=== PATIENT | male | born 1960 | race Caucasian/White ===

== ENCOUNTER → 2018-08-28 09:27 | Outpatient (CLI) | payer BC, SELFPAY ==
--- NOTE | 2018-08-28 09:36 | XR_ITS ---
XR elbow LT min 3V HISTORY: Chronic elbow pain ITS.REASON: AP + Lateral, radial head view ORDERING PHYSICIAN: Teresita Manning MD PATIENT AGE: 57 years COMPARISON: None FINDINGS: BONY STRUCTURES: No fracture or dislocation. No lytic or blastic change. Normal mineralization. SOFT TISSUES: Unremarkable. No radio opaque foreign bodies. No displaced fat pad. JOINT SPACE: Well-preserved. No significant arthritic changes evident. IMPRESSION: Negative elbow.
== END ==
PROVIDERS: PCP Internal Medicine; Visit Provider Orthopaedic Surgery
DX: M25.522 Pain in left elbow (principal)
CPT/HCPCS: 73080

== ENCOUNTER → 2018-12-06 14:28 | Outpatient (CLI) | payer BC, SELFPAY ==
--- NOTE | 2018-12-06 14:34 | NVE_ITS ---
Venous Exam Indications: 729.5 Pain in limb. IMPRESSIONS 1. There is no evidence of significant Reflux. 2. No evidence of deep or superficial vein thrombosis involving the right lower extremity Right lower extremity venous duplex evaluation. Doppler flow study including spectral analysis, color and young scale imaging. Location: Vascular laboratory. Patient status: Outpatient. Tables: Venous flow and imaging: + +-------+ + Location Overall Flow properties + +-------+ + Right common femoral Patent Normal phasicity; spontaneous; normal augmentation; compressible + +-------+ + Right saphenofemoral junction Patent Compressible + +-------+ + Right profunda femoral Patent Compressible + +-------+ + Right femoral Patent Normal phasicity; spontaneous; normal augmentation; compressible + +-------+ + Right greater saphenous Patent Normal phasicity; spontaneous; normal augmentation; compressible + +-------+ + Right popliteal Patent Normal phasicity; spontaneous; normal augmentation; compressible + +-------+ + Right posterior tibial Patent Compressible + +-------+ + Right peroneal Patent Compressible + +-------+ + Right gastrocnemius Patent Compressible + +-------+ + Right soleal Patent Compressible + +-------+ + (Report amended ) Electronically signed by: Primo Ndiaye [id number]
== END ==
PROVIDERS: PCP Internal Medicine; Visit Provider Internal Medicine
DX: M79.661 Pain in right lower leg (principal); I83.91 Asymptomatic varicose veins of right lower extremity
CPT/HCPCS: 93971

== ENCOUNTER → 2019-04-09 11:10 | Outpatient (CLI) | payer BC, SELFPAY ==
--- NOTE | 2019-04-09 11:14 | XR_ITS ---
PROCEDURE: XR LUMBAR SPINE MIN 4V CLINICAL INDICATION: LBP WITH RT SCIATICA low back injury several years ago COMPARISON: No exams were available for comparison FINDINGS: There is normal curvature and alignment. All lumbar vertebrae appear intact and disc spaces are well maintained throughout. There is no pars defect. There are mild hypertrophic facet changes at the L 3 4 and L4-5 and L5-S1 levels. The SI joints are normal. IMPRESSION: Hypertrophic facet changes lower lumbar spine otherwise unremarkable study Dictated by: Dr. Clive Cedeno MD 04/09/2019 17:[address] Clive Cedeno MD in [place] 04/09/2019 17:47
== END ==
PROVIDERS: PCP Internal Medicine; Visit Provider Internal Medicine
DX: M54.31 Sciatica, right side (principal)
CPT/HCPCS: 72110

== ENCOUNTER → 2019-05-30 11:08 | Outpatient (CLI) | payer BC, SELFPAY ==
[2019-05-30 11:16] LABS: Basophils % 0.6 % (0.1-2.0); Eosinophils # 0.2 K/mm3 (0.0-0.4); Eosinophils % 2.6 % (0.1-12.0); Hematocrit 44.1 % (42.0-52.0); Hemoglobin 14.3 g/dL (14.1-18.0); Lymphocytes # 2.3 K/mm3 (0.7-4.5); Lymphocytes % 40.4 % (10-50); Mean Corpuscular HGB Conc 32.4 g/dL (31.8-35.4); Mean Corpuscular Hemoglobin 28.6 pg (27.0-31.2); Mean Corpuscular Volume 88.2 fl (80-94); Mean Platelet Volume 7.6 fl (7.4-10.4); Monocytes # 0.5 K/mm3 (0.1-1.0); Neutrophils # 2.7 K/mm3 (1.8-7.8); Neutrophils % 47.5 % (37.0-80.0); Platelet Count 249 K/mm3 (142-424); Red Cell Distribution Width 13.3 % (11.5-17.5); White Blood Count 5.7 K/mm3 (4.8-10.8)
[2019-05-30 11:31] LABS: Alanine Aminotransferase 24 U/L (12-78); Albumin Level 4.2 gm/dL (3.4-5.0); Albumin/Globulin Ratio 1.6 (1.1-1.8); Alkaline Phosphatase 91 U/L (46-116); Amylase 30 U/L (25-115); Anion Gap 10.3 mEq/L (5-15); Aspartate Amino Transferase 21 U/L (15-37); Bilirubin,Total 0.3 mg/dL (0.2-1.0); Blood Urea Nitrogen 19 mg/dL (7-18); Calcium 8.8 mg/dL (8.5-10.1); Carbon Dioxide 30 mmol/L (21.0-32.0); Chloride 107 mmol/L (98-107); Creatinine,Serum 1.08 mg/dL (0.70-1.30); Estimated Glomerular Filt Rate 70 ml/min (>60); GFR (African American) 84 ML/MIN (>60); Globulin 2.6 gm/dl (1.3-3.2); Glucose 107 mg/dL (74-106); Potassium 4.3 mmoL/L (3.5-5.1); Sodium 143 mmol/L (136-145); Total Protein,Serum 6.8 gm/dL (6.4-8.2)
== END ==
PROVIDERS: Visit Provider Internal Medicine
DX: R10.11 Right upper quadrant pain (principal)
CPT/HCPCS: 80053; 82150; 85025

== ENCOUNTER → 2019-06-04 07:35 | Outpatient (CLI) | payer BC, SELFPAY ==
--- NOTE | 2019-06-04 07:38 | US_ITS ---
PROCEDURE: US ABDOMEN COMPLETE CLINICAL INDICATION: RUQ PAIN COMPARISON: No exams were available for comparison FINDINGS: PANCREAS: Unremarkable. No obvious mass or abnormal fluid collection. No ductal dilatation LIVER: No focal liver lesions demonstrated. Homogeneous echogenicity. No intrahepatic biliary ductal dilatation evident. There is appropriate direction of blood flow within a non dilated portal vein RIGHT KIDNEY: Unremarkable. Normal size and echogenicity. No hydronephrosis LEFT KIDNEY: Unremarkable. Normal size and echogenicity. No hydronephrosis GALLBLADDER: No gallstones, gallbladder wall thickening, pericholecystic fluid, or biliary dilatation. AORTA: No evidence of aneurysmal dilatation. SPLEEN: Mild splenomegaly at 13-14 cm ASCITES: None IMPRESSION: Borderline splenomegaly otherwise negative Dictated by: Primo Ndiaye MD 06/04/2019 17:02 Electronically signed by Primo Ndiaye MD in [place] 06/04/2019 17:02
== END ==
PROVIDERS: PCP Internal Medicine; Visit Provider Internal Medicine
DX: R10.11 Right upper quadrant pain (principal)
CPT/HCPCS: 76700

== ENCOUNTER → 2020-03-01 15:16 | Outpatient (CLI) | payer BC, SELFPAY ==
--- NOTE | 2020-03-01 | XR_ITS ---
PROCEDURE: XR ELBOW RT MIN 3V CLINICAL INDICATION: RT MEDIAL ELBOW PAIN COMPARISON: No exams were available for comparison FINDINGS: No fracture or dislocation. No lytic or blastic change. There is normal mineralization. The joint spaces are well-preserved. No significant degenerative/arthritic changes. No erosive changes evident. Other findings:Prominent enthesophyte at the olecranon. IMPRESSION: No acute findings. Dictated by: Primo Ndiaye MD 03/01/2020 16:04 Primo Ndiaye MD in [place] 03/01/2020 16:04
--- NOTE | 2020-03-01 | XR_ITS ---
PROCEDURE: XR SHOULDER RT MIN 2V CLINICAL INDICATION: RT SHOULDER PAIN, AC JOINT REGION COMPARISON: No exams were available for comparison FINDINGS: No fracture or dislocation. No lytic or blastic change. There is normal mineralization. There are mild osteoarthritic changes of the acromioclavicular joint. Other findings:None. IMPRESSION: Mild osteoarthritis with hypertrophy at the acromioclavicular joint otherwise negative Dictated by: Primo Ndiaye MD 03/01/2020 16:04 Primo Ndiaye MD in [place] 03/01/2020 16:04
== END ==
PROVIDERS: PCP Internal Medicine; Visit Provider Internal Medicine
DX: M25.521 Pain in right elbow (principal); M25.511 Pain in right shoulder
CPT/HCPCS: 73030; 73080

== ENCOUNTER 2020-05-18 10:36 | Emergency (ER) | payer BC, SELFPAY ==
[2020-05-18 10:37] VITALS: BP 127/79; PULSE 75; RESP 14; TEMP 36.1; O2SAT 98; BMI 29.4
--- NOTE | 2020-05-18 10:58 | HMH.EDUTC ---
[facility] [place] Impression: COVID-19 Disposition: Home, Self-Care Condition on Discharge: Good Instructions: DI for COVID-19 (Suspected or Confirmed ), Preventing the Spread of Coronavirus Discharge Instructions Additional Instructions: Drink plenty of fluids. Take tylenol or ibuprofen for pain or fever. Take the medications as directed. Follow up with your regular doctor. GO TO THE ER FOR ANY WORSENING SYMPTOMS Referrals: Abisai Joy [Primary Care Provider] - Medical Decision Making - Medical Records Medical records reviewed: No: I reviewed the patient's medical records. - Aditya Inquiry Pt receiving controlled substance: No Vital Signs: 05/18/20 10:37 Temperature 96.9 F L Temperature Source Oral Pulse Rate [Right] 75 Respiratory Rate 14 Blood Pressure [Right Arm] 127/79 Blood Pressure Mean [Right Arm] 95 02 Sat by Pulse Oximetry 98 Orders (Tests/Meds): ORDERS Category Date Time Status Covid-19 Nasal PCR ([facility]) Routine Lab 05/18/20 10:40 Ordered [facility] [place] - General Stated complaint: covid exposure Time Seen by Provider: 05/18/20 10:58 - History of Present Illness Provider Complaint: He has been quarentined with his family. He has had family members with covid-19. He did not ever develope symptoms. He needs a negative test to be allowed to go back to work. - Related Data Home Medications Medication Instructions Recorded Confirmed Omeprazole Magnesium [Prilosec Otc 20 mg PO DAILY 09/29/17 08/28/18 20mg Tab] Previous Rx's Medication Instructions Recorded predniSONE [Prednisone 20mg 20 mg PO DAILY #10 tab 09/29/17 Tab] Allergies Allergy/AdvReac Type Severity Reaction Status Date / Time From [facility] Allergy Intermediate PASSED OUT Uncoded 08/28/18 10:51 PCN (PENICILLIN) Allergy Intermediate I-RASH Uncoded 08/28/18 10:51 [facility] History - Hepatitis A Screen Attestation statement:: This patient has been screened for Hepatitis A risk factors. I have reviewed the patient's past medical history: Yes Medical History: Denies:: Cancer, Diabetes Mellitus Type 1, Diabetes Mellitus Type 2, MRSA Amputation: No Fractures: No - Social History Smoking Status: Never smoker Alcohol Intake: never Occupational Status: employed ROS Obtained: Yes All systems reviewed & no additional complaints - Constitutional Constitutional: Reports system reviewed and no additional complaints, except as docu - Eyes Eyes: Reports system reviewed and no additional complaints, except as docu - ENT Ears, Nose, Mouth, and Throat: Reports system reviewed and no additional complaints, except as docu - Cardiovascular Cardiovascular: Reports system reviewed and no additional complaints, except as docu - Respiratory Respiratory: Reports system reviewed and no additional complaints, except as docu - Gastrointestinal Gastrointestingal: Reports: system reviewed and no additional complaints, except as docu Physical Exam - General General appearance: alert, in no apparent distress - Head Head exam: atraumatic, normocephalic, normal inspection - Eye Eye exam: Present: normal appearance, PERRL, EOMI - ENT ENT exam: Present: normal exam, normal oropharynx, mucous membranes moist, TM's normal bilaterally, normal external ear exam - Neck Neck exam: Present: normal inspection, full ROM, trachea midline. Absent: meningismus, lymphadenopathy - Chest Chest inspection: Present: normal inspection, symmetric chest wall rise. Absent: tenderness - Respiratory Respiratory exam: Present: normal lung sounds bilaterally. Absent: respiratory distress - Cardiovascular Cardiovascular exam: Present: regular rate, normal rhythm. Absent: JVD - Abdominal Exam Abdominal exam: Present: soft, normal bowel sounds. Absent: distention, tenderness, guarding - Extremities Exam Extremities exam: Present: normal inspection, full ROM, normal capillary refill. Abse
[2020-05-18 11:01] VITALS: BP 127/79; PULSE 75; RESP 14; TEMP 36.1; O2SAT 98
[2020-05-19 09:04] LABS: Covid-19 Nasal PCR Sendout P&C NEGATIVE
== END 2020-05-18 11:01 | disposition home or self-care (01) ==
PROVIDERS: Emergency Provider Nurse Practitioner Family; PCP Internal Medicine
DX: Z20.822 Contact with and (suspected) exposure to COVID-19 (principal)
CPT/HCPCS: 99202; G0463; U0004

== ENCOUNTER → 2020-07-05 16:23 | Outpatient (CLI) | payer BC, SELFPAY ==
--- NOTE | 2020-07-05 16:28 | XR_ITS ---
PROCEDURE: XR KNEE LT 3V CLINICAL INDICATION: LEFT KNEE PAIN Left knee pain and swelling COMPARISON: CR [id number] KNEE-3 VIEWS-RT from 09/15/2015 CR [id number] XR knee LT 3V from 09/29/2017 FINDINGS: No fracture or dislocation. No lytic or blastic change. There is normal mineralization. Minimal osteoarthritic change of the medial compartment and patellofemoral joint not significantly changed Other findings:None. IMPRESSION: Minimal osteoarthritis Dictated by: Primo Ndiaye MD 07/05/2020 17:29 Primo Ndiaye MD in [place] 07/05/2020 17:29
== END ==
PROVIDERS: PCP Internal Medicine; Visit Provider Internal Medicine
DX: M25.562 Pain in left knee (principal)
CPT/HCPCS: 73562

== ENCOUNTER → 2020-07-07 09:55 | Outpatient (CLI) | payer BC, SELFPAY ==
--- NOTE | 2020-07-07 09:58 | US_ITS ---
PROCEDURE: US ABDOMEN COMPLETE CLINICAL INDICATION: RUQ PAIN COMPARISON: US US ABDOMEN COMPLETE from 06/04/2019 FINDINGS: PANCREAS: Unremarkable. No obvious mass or abnormal fluid collection. No ductal dilatation LIVER: No focal liver lesions demonstrated. Homogeneous echogenicity. No intrahepatic biliary ductal dilatation evident. There is appropriate direction of blood flow within a non dilated portal vein RIGHT KIDNEY: Unremarkable. Normal size and echogenicity. No hydronephrosis LEFT KIDNEY: Unremarkable. Normal size and echogenicity. No hydronephrosis GALLBLADDER: No gallstones, gallbladder wall thickening, pericholecystic fluid, or biliary dilatation. AORTA: No evidence of aneurysmal dilatation. SPLEEN: Unremarkable. Normal size and echogenicity ASCITES: None demonstrated. IMPRESSION: Unremarkable abdominal ultrasound Dictated by: Primo Ndiaye MD 07/07/2020 17:05 Primo Ndiaye MD in [place] 07/07/2020 17:05
== END ==
PROVIDERS: PCP Internal Medicine; Visit Provider Internal Medicine
DX: R10.11 Right upper quadrant pain (principal)
CPT/HCPCS: 76700

== ENCOUNTER → 2020-07-13 16:45 | Outpatient (CLI) | payer BC, SELFPAY ==
--- NOTE | 2020-07-13 16:48 | MR_ITS ---
PROCEDURE: MR KNEE LT WO CON CLINICAL INDICATION: LEFT KNEE PAIN Entire knee pain x1yr worsening knee pain. Knee instability. Pain when bending and extending. COMPARISON: CR XR KNEE LT 3V from 07/05/2020 TECHNIQUE: Routine multiplanar multi echo sequences are performed without gadolinium enhancement. FINDINGS: Cruciate ligaments and collateral ligaments are unremarkable. The patellar tendon and quadriceps tendon have an unremarkable appearance. No meniscal tear apparent. There is mild thinning of the patellar cartilage with mild osteoarthritic change of the patellofemoral joint and lateral compartment. A small area of bone marrow edema involves the posterior aspect of the proximal tibia medially. Small knee joint effusion noted. IMPRESSION: 1. No evidence of internal derangement. 2. Mild osteoarthritic change with small knee joint effusion. 3. Small amount of bone marrow edema etiology indeterminate involving the posterior aspect of the proximal tibia medially Dictated by: Primo Ndiaye MD 07/16/2020 11:59 Primo Ndiaye MD in [place] 07/16/2020 11:59
== END ==
PROVIDERS: PCP Internal Medicine; Visit Provider Internal Medicine
DX: M25.562 Pain in left knee (principal)
CPT/HCPCS: 73721

== ENCOUNTER → 2020-07-15 10:20 | Outpatient (CLI) | payer BC, SELFPAY ==
--- NOTE | 2020-07-15 10:23 | NM_ITS ---
PROCEDURE: NM HEPATOBILIARY WO PHARM CLINICAL INDICATION: RUQ PAIN COMPARISON: No exams were available for comparison TECHNIQUE: DOSE: 8.03 mCi technetium Choletec. Fatty meal given for gallbladder contraction. FINDINGS: Homogeneous activity is present within the hepatic parenchyma. Activity is present in the gallbladder by 10 minutes. Activity is present in the small bowel by 15 minutes. The gallbladder ejection fraction is calculated to be 30 percent. No pain reported with fatty meal. IMPRESSION: No evidence of common or cystic duct obstruction. Gallbladder ejection fraction is slightly low at 30 percent. Please correlate with clinical parameters regarding this finding Dictated by: Primo Ndiaye MD 07/15/2020 18:01 Primo Ndiaye MD in [place] 07/15/2020 18:01
== END ==
PROVIDERS: PCP Internal Medicine; Visit Provider Internal Medicine
DX: R10.11 Right upper quadrant pain (principal)
CPT/HCPCS: 78226; A9537

== ENCOUNTER → 2020-08-02 14:27 | Outpatient (CLI) | payer BC, SELFPAY ==
[2020-08-02 15:41] LABS: Blood Urea Nitrogen 15 mg/dl (9-20); Estimated Glomerular Filt Rate 62 ml/min (>60); GFR (African American) 74 ML/MIN (>60)
== END ==
PROVIDERS: Visit Provider Surgery
DX: Z01.818 Encounter for other preprocedural examination (principal)
CPT/HCPCS: 36415; 82565; 84520

== ENCOUNTER → 2020-08-11 10:11 | Outpatient (CLI) | payer BC, SELFPAY ==
--- NOTE | 2020-08-11 10:11 | CT_ITS ---
PROCEDURE: CT ABDOMEN PELVIS W CON CLINICAL INDICATION: right upper quad pain Mid right abd pain Mostly ruq pain [id number]. COMPARISON: CT ABDPELW/O CT ABD PELVIS W/O CONTRAST from 03/25/2014 TECHNIQUE: IV Contrast: 75ML Isovue 370 Oral Contrast 450ml Redicat Axial images obtained with sagittal and coronal reformats. All CT scans at the facility use one or more dose reduction, viz: automated exposure control, ma/kV adjustment per patient size (including targeted exams where dose is matched to indication, i.e. head), or iterative reconstruction technique. FINDINGS: LOWER THORAX: Gynecomastia on the right. Minimal scarring in the left lower lobe. ABDOMEN & PELVIS: No focal liver lesion. The gallbladder has an unremarkable appearance. The spleen, adrenal glands, and pancreas have an unremarkable appearance. No renal or ureteral calculi. No hydronephrosis or renal mass. No intestinal obstruction or free air. No evidence of appendicitis. Nondistended haustra versus diverticula of the sigmoid colon. No evidence of diverticulitis. No abnormal fluid collections. A few small retroperitoneal lymph nodes are present unchanged. No acute bony anomalies. There are few small subcortical cyst of the femoral necks on both sides IMPRESSION: No acute finding Dictated by: Primo Ndiaye MD 08/12/2020 13:05 Primo Ndiaye MD in [place] 08/12/2020 13:05
== END ==
PROVIDERS: PCP Internal Medicine; Visit Provider Surgery
DX: R10.11 Right upper quadrant pain (principal)
CPT/HCPCS: 74177; Q9967

== ENCOUNTER → 2020-08-16 09:49 | Outpatient (CLI) | payer BC, SELFPAY ==
[2020-08-16 10:03] LABS: Basophils % 0.6 % (0.1-2.0); Eosinophils # 0.1 K/mm3 (0.0-0.4); Eosinophils % 2.7 % (0.1-12.0); Hematocrit 46.6 % (42.0-52.0); Hemoglobin 15.4 g/dL (14.1-18.0); Mean Corpuscular Hemoglobin 28.6 pg (27.0-31.2); Mean Corpuscular Volume 86.7 fl (80-94); Mean Platelet Volume 7.5 fl (7.4-10.4); Monocytes # 0.5 K/mm3 (0.1-1.0); Monocytes % 10.4 % (1.7-9.3); Neutrophils # 2.5 K/mm3 (1.8-7.8); Neutrophils % 48.4 % (37.0-80.0); Platelet Count 282 K/mm3 (142-424); Red Blood Count 5.38 M/mm3 (4.60-6.20); White Blood Count 5.2 K/mm3 (4.8-10.8)
[2020-08-16 10:57] LABS: Potassium 4.7 mmoL/L (3.5-5.1); Sodium 141 mmol/L (136-145)
[2020-08-16 10:58] LABS: Chloride 106 mmol/L (98-107)
[2020-08-16 10:59] LABS: Blood Urea Nitrogen 16 mg/dl (9-20); Estimated Glomerular Filt Rate 76 ml/min (>60); GFR (African American) 92 ML/MIN (>60)
[2020-08-16 11:00] LABS: Albumin Level 4.8 g/dl (3.5-5.0); Albumin/Globulin Ratio 1.7 (1.1-1.8); Calcium 9.8 mg/dl (8.4-10.2); Globulin 2.8 g/dL (1.3-3.2); Glucose 135 mg/dl (74-100); Total Protein,Serum 7.6 g/dl (6.3-8.2)
[2020-08-16 11:01] LABS: Alanine Aminotransferase 27 U/L (12-78); Alkaline Phosphatase 81 U/L (38-126); Anion Gap 11.7 mEq/L (5-15); Aspartate Amino Transferase 33 U/L (17-59); Bilirubin,Total 0.6 mg/dl (0.2-1.3); Carbon Dioxide 28 mmol/L (22.0-30.0)
[2020-08-16 11:11] LABS: Coronavirus 19 IgG Antibody Positive (Negative); Coronavirus 19 IgM Antibody Negative (Negative)
== END ==
PROVIDERS: Visit Provider Surgery
DX: Z01.812 Encounter for preprocedural laboratory examination (principal); Z20.822 Contact with and (suspected) exposure to COVID-19; K82.8 Other specified diseases of gallbladder
CPT/HCPCS: 80053; 85025; 86328

== ENCOUNTER 2020-08-17 07:39 | Day surgery (SDC) | payer BC, SELFPAY ==
[2020-08-16 08:55] VITALS: BMI 28.8
[2020-08-17] VITALS (11 sets, daily range): BP systolic 112–143; BP diastolic 75–91; PULSE 53–85; RESP 12–18; TEMP 36.2–43; O2SAT 92–97
--- NOTE | 2020-08-17 10:20 | HMH.ANESCL ---
[facility] Anesthesia Checklist - Patient Identification Patient Identification: Arm Band - Structural Data Admitted From: Home Planned Operative Procedure/s: Laparoscopic Cholecystectomy Consent for Planned Operative Procedure(s) Verified: Yes Verified Documents: Surgical Consent, History and Physical - NPO Status Verified Time NPO: 00:00 - Additional verifications Anesthesia Reactions: No Hx Blood Transfusions: No Blood Transfusion Reaction: No - Airway Assessment C-Spine Mobility Assessed: Yes (mp2) TMJ Mobility Assessed: Yes Dentition: Poor Dentition - Neurological Assessment Level of Consciousness: Awake, Alert - Anesthesia Plan Anesthesia Risk discussed: Yes Anesthesia Plan: Verified ASA Class: II Anesthesia Type: General [facility] History I have reviewed the patient's past medical history: Yes Medical History: Reports:: Gastroesophageal Reflux Disease(GERD) Denies:: Cancer, Diabetes Mellitus Type 1, Diabetes Mellitus Type 2, Internal Pacemaker, MRSA, Seizures *Have you ever received a pneumonia vaccine?: No *Have you received a flu vaccine this season?: Yes Other Medical History: Reports: Hypothyroidism. Denies: Blood Transfusion Reaction Anesthesia experience/problems:: nac Other Surgeries: Yes: Colonoscopy. No: Pacemaker Amputation: No Fractures: No - *Social History Last grade of school completed: High school graduate Smoking Status: Never smoker Alcohol Intake: never Substance Use Type: denies use *Occupational Status:: employed Housing: house Household Members: spouse *Travel in the last 8 weeks: None Family Hx:: No significant family history
--- NOTE | 2020-08-17 10:52 | HMH.OPNOTE ---
Date of procedure: 08/17/20 Pre-op Diagnosis:: Gallbladder disease Post-op Diagnosis:: Same Procedure performed:: Laparoscopic cholecystectomy Surgeon:: Rodolfo Oreilly MD [employer]:: Other Anesthesia: GETA Estimated blood loss (mL): 15 Clinical Note:: Patient is a 59-year-old male whom I had seen in the past. He was recently referred by Dr. Joy for possible gallbladder. He states that recently he had some onset of pain in the right upper and mid abdomen with some radiation around laterally. This was described as a dull pain. There is some mild nausea. This was not associated with eating. This has been ongoing for several months. He underwent gallbladder ultrasound on 07/07/2020 which was unremarkable. He had a HIDA scan performed on 07/15/2020. This revealed an ejection fraction of 30% based on fatty meal (Ensure) consumption. He had no reproduction of symptoms with fatty meal intake. He does take meloxicam as needed. After my initial consultation I felt that given the equivocal gallbladder work-up I would have him undergo CT scan. This reveals no acute findings. Consideration was being given for possible upper endoscopy initially. However, the patient felt adamant about proceeding with gallbladder surgery. Operative findings:: He had a distended gallbladder. Interestingly there is an area of focal omental adhesion to the anterior abdominal wall near the gallbladder. There were no palpable stones. Operative note:: Patient was taken to the operating room. He was positioned in a supine position. General anesthesia was induced via endotracheal tube. Abdomen was prepped and draped in the standard surgical fashion. Subumbilical skin incision was made and while performing abdominal wall lift Veress needle was inserted. CO2 pneumoperitoneum was achieved to 15 mmHg. 11 mm optical trocar was inserted at the umbilicus. Patient was positioned in reverse Trendelenburg with left side down. There was noted to be a single thin omental adhesion and from the gallbladder to the anterior abdominal wall. A couple of 5 mm trochars were inserted in the right upper abdomen. 10 mm trocar was inserted in the epigastrium. Adhesion was taken down using NICK ultrasonic harmonic varsha. Gallbladder was identified and grasped retracted anteriorly and superiorly over the dome of the liver. It was somewhat distended. Infundibulum the gallbladder was retracted anterior laterally. Blunt dissection was carried out at the neck of the gallbladder bluntly incising the visceral peritoneum. The cystic duct and cystic artery were identified and dissected free. Cystic duct was multiply clipped and sharply divided. Cystic artery was carefully coagulated with NICK ultrasonic harmonic varsha and divided. Gallbladder was dissected free from the liver in a retrograde fashion using NICK ultrasonic robotic varsha. Gallbladder was placed within an Endo Catch retrieval device and removed from the peritoneal cavity via the umbilical trocar site which required some stretch of the fascial incision for delivery of the distended gallbladder. Gallbladder fossa was then inspected for hemostasis which was assured. Very limited irrigation was performed. Trochars were removed as CO2 pneumoperitoneum was evacuated. Fascia at the umbilicus was closed with a couple of interrupted 0 Vicryl sutures. Local anesthetic was infiltrated. Skin incisions were closed with 4-0 Monocryl in a subcuticular fashion. Steri-Strips and dressings were applied. Condition: stable Disposition: PACU Specimens:: Gallbladder and contents Complications:: None immediately apparent
--- NOTE | 2020-08-17 11:05 | P.PN_ITS ---
[facility] Anesthesia Record Part I Intake, IV Amount: 1,600 Estimated blood loss (mL): 10 Urine output (mL): 0 Blood Pressure: 124/85 SaO2: 92 Pulse Rate: 68 Respiratory Rate: 16 Temperature: 97.6 F Patient is:: Drowsy, Stable Stable to PACU at:: 11:00
--- NOTE | 2020-08-17 16:05 | HMH.ANESII ---
[facility] Anesthesia Record Part II Discharge Time: 11:30 Destination: Surgical Day Care (OP Surgery) PACU nurse assessment reviewed?: Yes Patient Condition:: Good Anesthesia Complications:: None Swallowing reflex intact?: Yes Cyanosis?: No Blood Pressure: 135/89 Pulse Rate: 65 Temperature: 97.6 F Mental Status: Alert & Oriented Pain level:: 0 Nausea and/or vomitting:: None Intake, IV Amount: 0
== END 2020-08-17 12:03 | disposition home or self-care (01) ==
LOC: OR 07:40
PROVIDERS: PCP Internal Medicine; Visit Provider Surgery
PROC: 0FT44ZZ Resection of Gallbladder, Percutaneous Endoscopic Approach (ICD-10-PCS; CPT 47562; principal; 2020-08-17 09:15)
DX: K81.1 Chronic cholecystitis (principal); K82.8 Other specified diseases of gallbladder; K82.4 Cholesterolosis of gallbladder; K21.9 Gastro-esophageal reflux disease without esophagitis; E03.9 Hypothyroidism, unspecified; Z88.0 Allergy status to penicillin; Z88.8 Allergy status to other drugs, medicaments and biological substances; Z79.899 Other long term (current) drug therapy
CPT/HCPCS: 47562; 96374; J2405; J2710

== ENCOUNTER → 2021-04-27 15:35 | Outpatient (CLI) | payer OTHER, SELFPAY | PROVIDERS: Visit Provider Internal Medicine | DX: E03.4 Atrophy of thyroid (acquired) (principal) | CPT/HCPCS: 84443 ==

== ENCOUNTER → 2021-05-03 11:11 | Outpatient (CLI) | payer OTHER, SELFPAY | PROVIDERS: PCP Internal Medicine; Visit Provider Nurse Practitioner | DX: Z20.822 Contact with and (suspected) exposure to COVID-19 (principal) | CPT/HCPCS: C9803; U0003; U0005 ==

== ENCOUNTER → 2021-05-30 14:05 | Outpatient (CLI) | payer OTHER, SELFPAY ==
--- NOTE | 2021-05-30 | CA_ITS ---
FINAL REPORT TECHNIQUE: Ultrasound images of the deep venous system were obtained from the left groin to the calf veins. CLINICAL HISTORY: .Rt leg tenderness in areas with redness FINDINGS: The deep venous system is normally compressible. Normal flow is identified. There is a noncompressible superficial vein at the region of interest consistent with superficial thrombophlebitis. IMPRESSION: No evidence of left lower extremity DVT. Superficial thrombophlebitis at the area of interest. Reviewed, Interpreted and Dictated by Sanya Lezama MD Transcribed by Bon Houser Authenticated by Sanya Lezama MD on 05/30/2021 04:23:31 PM [facility]
== END ==
PROVIDERS: PCP Internal Medicine; Visit Provider Internal Medicine
DX: M79.661 Pain in right lower leg (principal); R60.0 Localized edema
CPT/HCPCS: 93971

== ENCOUNTER → 2021-07-27 10:48 | Outpatient (CLI) | payer OTHER, SELFPAY ==
--- NOTE | 2021-07-27 11:02 | XR_ITS ---
FINAL REPORT TECHNIQUE: Chest PA & Lateral CLINICAL HISTORY: CHEST PAIN SOA FINDINGS: 2 views of the chest were performed. The heart size is normal. The mediastinum is within normal limits. There is scarring in the left lung base. There are no pleural effusions. There is no pneumothorax. The bony thorax appears intact. IMPRESSION: No acute cardiopulmonary process. Reviewed, Interpreted and Dictated by Sanya Lezama MD Transcribed by Bon Houser Authenticated by Sanya Lezama MD on 07/27/2021 12:26:43 PM [facility]
--- NOTE | 2021-07-27 11:16 | ECG_ITS ---
APPROVED REPORT Exam: Resting ECG HR:66 bpm ECG Measurements Heart Rate 66 AXES IA 206 P 81 QRSd 93 QRS 100 QT 364 T 73 QTc 378 Conclusion SINUS RHYTHM INCOMPLETE RIGHT BUNDLE BRANCH BLOCK [90+ ms QRS DURATION, TERMINAL R IN V1/V2, 40+ ms S IN I/aVL/V4/V5/V6] RIGHT VENTRICULAR HYPERTROPHY [SOME/ALL OF: PROMINENT R IN V1, LATE TRANSITION, RAD, URVASHI, SSS] POSSIBLE INFERIOR MYOCARDIAL INFARCTION , OLD [30 ms Q WAVE IN II/aVF] ABNORMAL ECG UNCONFIRMED REPORT Electronically signed by : Abisai Joy MD 07/27/2021 11:34:59
== END ==
PROVIDERS: PCP Internal Medicine; Visit Provider Internal Medicine
DX: R07.9 Chest pain, unspecified (principal); R06.02 Shortness of breath
CPT/HCPCS: 71046; 93005

== ENCOUNTER → 2021-08-01 10:33 | Outpatient (CLI) | payer OTHER, SELFPAY ==
--- NOTE | 2021-08-01 | CA_ITS ---
APPROVED REPORT EXAM: Comprehensive 2D, Doppler, and color-flow Echocardiogram Embedded Software Development Engineer: Ynes Quiñones, [place], RVS Ht: 6 ft 1 in Wt: 223lbs BSA: 2.25 BP: 120/80 mmHg Indications: SOA, ABN EKG, CP,known valular insufficiencies 2D Dimensions IVSd 1.11 cm LVEF (Visual) 72.80 % PWd 1.04 cm LA Volume 52.50 mL LVDd 4.84 cm LA Volume Index 23.30 mL/m2 (M/F) 16-34 LVDs 2.81 cm Aortic Root 3.28 cm Left Atrium 4.15 cm LVOT 1.98 cm (M/F) 1.5-2.5 M-Mode Dimensions LA Diam 3.75 cm (1.9-4.0) Ao Diam 3.59 cm (2.0-3.7) EPSs 0.48 cm TAPSE 1.93 (<1.7) LV Diastology E Decel Time 223.00 (160-240 msec) E/A Ratio 1.17 MED E' 7.90 (< 7 cm/sec) MED A' 10.20 cm/s E'/MED E' Ratio 7.86 (>14) LAT E' 9.70 (<10 cm/sec) LAT A' 13.70 cm/s E/LAT E' Ratio 6.40 (>14) Aortic Valve LVOT Max 132.00 (70-110 cm/s) LVOT VTI 27.33 cm AoV Peak Yosef. 166.00 (50-130 cm/s) AO Peak GR. 11.00 mmHg AO Mean GR. 5.30 (<5 mmHg) AO VTI 31.28 (18-25 cm) ALETHEA (VTI) 2.69 (2.5-4.5 cm2) Mitral Valve MV A Velocity 53.00 (40-130 cm/s) E/A Ratio 1.17 MV Decel. Time 223.00 (160-240 ms) MV Mean Gr. 0.80 (<2mmHg) MV PHT 67.00 ms Pulmonary Valve PV Peak Velocity 79.00 (50-150 cm/s) PA End VMAX 202.00 cm/s Tricuspid Valve TR P. Velocity 200.00 cm/s RAP Estimate 10.00 mmHg RVSP 26.00 mmHg Left Ventricle Left atrium is mildly enlarged, left ventricular normal size, mild concentric left ventricular hypertrophy, visually estimated ejection fraction 55% with mild apical wall hypokinesis, there appears to be echodensity seen in the apex raising the concerns for presence of apical thrombus, repeat study with Definity contrast is recommended. Grade 1 diastolic dysfunction seen without tissue Doppler evidence of raise left atrial pressure. Right Ventricle Right atrium and right ventricle are normal size and contractility. Aortic Valve Aortic valve is thickened and calcified without aortic stenosis or aortic insufficiency. Mitral Valve Mitral valve grossly normal, there is trace mitral regurgitation. Tricuspid Valve Tricuspid grossly normal, there is trace tricuspid regurgitation, tricuspid regurgitation jet velocity is inadequate for calculation of the right ventricular systolic pressure. Pulmonic Valve Pulmonic valve is poorly visualized. Great Vessels Aortic root is normal size. Inferior vena cava is poorly visualized. Pericardium No significant pericardial effusion noted. Conclusion 1. Mildly enlarged left atrium, normal left ventricular size, mild concentric left ventricular hypertrophy, visually estimated ejection fraction 55% with segmental wall motion abnormality described above, grade 1 diastolic dysfunction seen without tissue Doppler evidence of raise left atrial pressure, echodense mobile structure seen in the apex, raising the concern for presence of thrombus, repeat study with Definity contrast is recommended. 2. Trace mitral and tricuspid regurgitation. 3. No significant pericardial effusion noted. 4. Inferior vena cava is poorly visualized. Electronically signed by : Jovon Mendoza MD 08/01/2021 20:45:28
== END ==
PROVIDERS: PCP Internal Medicine; Visit Provider Internal Medicine
DX: R06.02 Shortness of breath (principal); R07.9 Chest pain, unspecified; R94.31 Abnormal electrocardiogram [ECG] [EKG]
CPT/HCPCS: 93306

== ENCOUNTER → 2021-08-05 10:29 | Outpatient (CLI) | payer OTHER, SELFPAY ==
--- NOTE | 2021-08-05 | CA_ITS ---
APPROVED REPORT EXAM: Comprehensive 2D, Doppler, and color-flow Echocardiogram Manager Of Selection And Assessment: Rema Pop RT(R) Ht: 6 ft 1 in Wt: 223lbs BSA: 2.25 BP: 120/80 mmHg Indications: Abn echo ordered to be repeated with definity for delineation of the apex. Echo Enhancing Agent Indication: Endocardial border delineation Agent(s) / Amount(s) Used: Definity 2 cc Conclusion 1. Limited echocardiogram was performed with Definity contrast to evaluate the left ventricular apex. 2. Left ventricle is normal size, estimated ejection fraction 55% with no obvious regional wall motion abnormality, there is no left ventricular apical thrombus seen. 3. No significant pericardial effusion noted. Electronically signed by : Jovon Mendoza MD 08/05/2021 15:37:40
== END ==
PROVIDERS: PCP Internal Medicine; Visit Provider Internal Medicine
DX: R93.1 Abnormal findings on diagnostic imaging of heart and coronary circulation (principal)
CPT/HCPCS: 93308; Q9957

== ENCOUNTER → 2021-08-19 11:03 | Outpatient (CLI) | payer OTHER, SELFPAY ==
--- NOTE | 2021-08-19 | CA_ITS ---
APPROVED REPORT Exam: Exercise Treadmill Technologist: Harika Fernandez, Ht: 6 ft 1 in Wt: 225 lbs BSA: 2.26 m2 HR: 68 bpm BP: 135/78 mmHg Rhythm: NSR,CANNOT R/O OLD INFERIOR ND ST-T ABNORMALITIES IN III,aVF Medical History Medications: Omeprazole,,,,, Levothyroxine,,,,, MeLOXICAM,,,,, Stress Test Details Test: Maverick HR Resting HR: 78 bpm Max Heart Rate (APMHR): 158.269292 bpm Max HR Achieved: 142 bpm Target HR (85% APMHR): 134.862384 bpm % of APMHR: 89.87 BP Resting BP: 135/78 mmHg Max BP: 190/80 mmHg Recovery BP: 167.0/84.0 mmHg ECG Clinical Exercise duration: 07:01 min Highest Stage Achieved: Exercise capacity: 10.1 METs Stress ECG Conclusion EXERCISED 7:01 INTO STAGE 3 MAVERICK PROTOCOL. MAX HEART RATE 142 BPM WHICH IS 90% OF PM FOR AGE. MAX BP 190/80. METS 10.1. TEST STOPPED DUE TO SOA AND FATIGUE. NO CP. OCCASAIONAL PVC. EXAGGERATION OF BASELINE T WAVE INVERSIONS INFERIORLY. OTHERWISE NORMAL ST RESPONSE. NON-DIAGNOSTIC GXT DUE TO BASELINE EKG ABNS. MYOVIEW IMAGES REPORTED SEPARATELY Test Summary REST . . . . . . . Standing REST . . . . . . . Sitting REST 04:44 0.0 0.0 78 . 135/ 78 . . Stage 1 01:00 10.0 1.7 94 . . . . Stage 1 02:00 10.0 1.7 103 . . . . Stage 1 03:00 10.0 1.7 109 . 182/ 76 . . Stage 2 01:00 12.0 2.5 120 . . . . Stage 2 02:00 12.0 2.5 124 . . . . Stage 2 03:00 12.0 2.5 130 . 190/ 80 . . Stage 3 01:00 14.0 3.4 142 . . . . Stage 3 01:01 14.0 3.4 142 . . . Stop exercise at 07:01 RECOVERY 01:00 0.0 0.0 126 . . . . RECOVERY 02:00 0.0 0.0 98 . . . . RECOVERY 03:00 0.0 0.0 78 . 167/ 84 . . RECOVERY 04:00 0.0 0.0 81 . 143/ 75 . . RECOVERY 05:00 0.0 0.0 79 . 143/ 75 . . RECOVERY 05:20 0.0 0.0 79 . 143/ 75 . . Electronically signed by : Jovon Mendoza MD 08/21/2021 16:03:31
--- NOTE | 2021-08-19 11:09 | NM_ITS ---
APPROVED REPORT Exam: Nuclear Stress Test Indication: FM HX, ATYPICAL C.P., ABN EKG Patient Location: Outpatient Stress Tech: Josee Rebecca MS Tech:OLEKSANDR Beck RT(R)(N) Ht: 6 ft 1 in Wt: 225 lbs HR: 68 bpm BP: 136/78 mmHg BSA: 2.26 m2 BMI: 29.6 History: FM HX, ATYPICAL C.P., ABN EKG Procedure: Patient exercised on Maverick protocol 7:01 minutes and sec, resting heart rate 68 bpm, resting blood pressure 136/78 mmHg, with exercise maximum heart rate achived was 142 bpm which is 90 % of the maximum predicted heart rate and blood pressure was 198/80 mmHg. Test was stopped due to SOA & FATIGUE. Patient denied any complaint of chest pain. Patient has good exercise capacity, achieved 10.1 METs of workload on treadmill, the blood pressure response to exercise was Adequate. Electrocardiogram Resting electrocardiogram shows sinus rhythm, with nonspecific ST-T changes, with exercise there is less than 1.[address] segment depression noted from the baseline EKG. The EKG portion of the exercise Myoview is negative for ischemia. Cardiac Stress and Resting SPECT Images: Cardiac Stress and Resting SPECT images were obtained using technetium 99m Myoview 31.8 mCi stress and 10.50 mCi at rest. Gated SPECT for analysis of segmental wall motion and calculation of the ejection fraction also done. Prone images were also obtained. Cardiac stress and resting SPECT may show uniform myocardial activity without segmental perfusion abnormality, computer derived ejection fraction is 53% with no regional wall motion abnormality, right ventricle is moderately enlarged with normal contractility. Conclusion: 1. The EKG portion of the exercise Myoview is negative for ischemia, patient has good exercise capacity achieved 10.1 METs of workload on treadmill, the blood pressure response to exercise was adequate, there was no exercise-induced chest discomfort. 2. No scintigraphic evidence of reversible ischemia seen at this level of exercise, computer derived ejection fraction 53% with no regional wall motion abnormality, right ventricle is moderately enlarged with normal contractility. 3. Normal exercise Myoview study except right ventricle appears to be moderately enlarged with normal contractility. Electronically signed by : Jovon Mendoza MD 08/19/2021 14:34:23
== END ==
PROVIDERS: PCP Internal Medicine; Visit Provider Internal Medicine
DX: R94.31 Abnormal electrocardiogram [ECG] [EKG] (principal)
CPT/HCPCS: 78452; 93017; A9502

== ENCOUNTER → 2021-09-14 09:28 | Outpatient (CLI) | payer OTHER, SELFPAY | PROVIDERS: PCP Internal Medicine; Visit Provider Internal Medicine | DX: G47.33 Obstructive sleep apnea (adult) (pediatric) (principal) | CPT/HCPCS: 95806 ==

== ENCOUNTER → 2021-09-16 15:12 | Outpatient (CLI) | payer OTHER, SELFPAY ==
--- NOTE | 2021-09-16 | ECG_ITS ---
APPROVED REPORT Exam: Resting ECG HR:69 bpm ECG Measurements Heart Rate 69 AXES WV 214 P 55 QRSd 98 QRS 15 QT 367 T 43 QTc 386 Conclusion SINUS RHYTHM WITH FIRST DEGREE AV BLOCK Otherwise a NORMAL ECG Electronically signed by : Abisai Joy MD 09/19/2021 08:56:40
== END ==
PROVIDERS: PCP Internal Medicine; Visit Provider Internal Medicine
DX: I20.8 Other forms of angina pectoris (principal)
CPT/HCPCS: 93005

== ENCOUNTER 2021-09-29 07:24 | Day surgery (SDC) | payer OTHER, SELFPAY ==
[2021-09-29] VITALS (12 sets, daily range): BP systolic 99–168; BP diastolic 61–103; PULSE 56–83; RESP 16–18; TEMP 36.9; O2SAT 93–99; BMI 29.7
--- NOTE | 2021-09-29 07:15 | IR_ITS ---
APPROVED REPORT Patient Location: Outpatient Computing Systems Mechanic: OLEKSANDR Naqvi RT (R) PROCEDURES Selective coronary angiogram INDICATION Recalcitrant recurrent crescendo angina pectoris Informed consent was obtained prior to the procedure. COMPLICATIONS None Estimated Blood Loss: Less than 10 mls TECHNIQUE One percent lidocaine used to anesthetize the right anterior aspect of the wrist. The right radial artery was accessed via the Seldinger technique. A 6 Sinhala sheath was placed in the right radial artery. 2.5 mg of verapamil, 800 mcg of nitroglycerin, 1mg Lidocaine and 5000 U Heparin were given through the arterial sheath. The papa catheter was also used to perform selective coronary angiogram. At the end of the procedure the apparatus was removed the sheath was removed and hemostasis was achieved using TR banding patient was transferred to the postop putting in stable condition ANGIOGRAPHIC RESULTS The left main artery Normal The left anterior descending artery Normal The circumflex artery Dominant normal The right coronary artery Vestigial normal The HUTCHINS ventriculogram reveals Not performed The left ventricular end-diastolic pressure Not measured IMPRESSION Normal coronary arteries PLAN 1. Evaluation of noncardiac chest pain Electronically signed by : Fabrizio Ann MD 09/29/2021 10:50:37
[2021-09-29 07:45] LABS: Coronavirus 19, PCR Not Detected (NotDetected); Influenza A, PCR Not Detected (NotDetected); Influenza B, PCR Not Detected (NotDetected)
[2021-09-29 07:59] LABS: Basophils # 0.1 K/mm3 (0-0.2); Basophils % 1.8 % (0.1-2.0); Eosinophils # 0.2 K/mm3 (0.0-0.4); Eosinophils % 4.3 % (0.1-12.0); Hematocrit 42.9 % (42.0-52.0); Hemoglobin 14.6 g/dL (14.1-18.0); Lymphocytes # 2.1 K/mm3 (0.7-4.5); Lymphocytes % 42.1 % (10-50); Mean Corpuscular HGB Conc 34.1 g/dL (31.8-35.4); Mean Corpuscular Hemoglobin 29.5 pg (27.0-31.2); Mean Corpuscular Volume 86.5 fl (80-94); Mean Platelet Volume 8.2 fl (7.4-10.4); Monocytes # 0.6 K/mm3 (0.1-1.0); Monocytes % 11.4 % (1.7-9.3); Neutrophils % 40.3 % (37.0-80.0); Platelet Count 258 K/mm3 (142-424); Red Blood Count 4.97 M/mm3 (4.60-6.20); Red Cell Distribution Width 14.4 % (11.5-17.5); White Blood Count 4.9 K/mm3 (4.8-10.8)
[2021-09-29 08:10] LABS: Anion Gap 9.5 mEq/L (5-15); Blood Urea Nitrogen 16 mg/dl (9-20); Carbon Dioxide 28 mmol/L (22.0-30.0); Chloride 105 mmol/L (98-107); Creatinine Clearance Estimated 101 mL/min (50-200); Potassium 4.5 mmoL/L (3.5-5.1); Sodium 138 mmol/L (136-145)
[2021-09-29 08:11] LABS: Calcium 9.2 mg/dl (8.4-10.2); Estimated Glomerular Filt Rate 68 ml/min (>60); GFR (African American) 82 ML/MIN (>60); Glucose 136 mg/dl (74-100)
== END 2021-09-29 13:52 | disposition home or self-care (01) ==
LOC: CATHLAB 07:27
PROVIDERS: PCP Internal Medicine; Visit Provider Internal Medicine
DX: I20.0 Unstable angina (principal); R06.00 Dyspnea, unspecified; R94.31 Abnormal electrocardiogram [ECG] [EKG]; Z82.49 Family history of ischemic heart disease and other diseases of the circulatory system; R07.89 Other chest pain; Z79.899 Other long term (current) drug therapy; Z88.8 Allergy status to other drugs, medicaments and biological substances; E03.9 Hypothyroidism, unspecified
CPT/HCPCS: 36415; 80048; 85025; 93454; 99152; C1769; C9803; J1644; Q9967; U0003; U0005

== ENCOUNTER → 2021-11-16 16:50 | Outpatient (CLI) | payer OTHER, SELFPAY ==
[2021-11-16 18:08] LABS: Thyroid Stimulating Hormone 2.36 uIU/mL (0.465-4.68)
== END ==
PROVIDERS: PCP Internal Medicine; Visit Provider Internal Medicine
DX: E03.9 Hypothyroidism, unspecified (principal)
CPT/HCPCS: 84443

== ENCOUNTER → 2022-08-15 11:53 | Outpatient (CLI) | payer OTHER, SELFPAY | PROVIDERS: PCP Internal Medicine; Visit Provider Internal Medicine | DX: E03.9 Hypothyroidism, unspecified (principal) | CPT/HCPCS: 84443 ==

== ENCOUNTER → 2023-02-19 19:30 | Outpatient (CLI) | payer OTHER, SELFPAY ==
[2023-02-19 20:05] LABS: Basophils % 0.3 % (0.1-2.0); Eosinophils # 0.2 K/mm3 (0.0-0.4); Eosinophils % 3.5 % (0.1-12.0); Hematocrit 43.5 % (42.0-52.0); Lymphocytes # 2.1 K/mm3 (0.7-4.5); Lymphocytes % 35.2 % (10-50); Mean Corpuscular HGB Conc 34.5 g/dL (31.8-35.4); Mean Corpuscular Hemoglobin 30.3 pg (27.0-31.2); Mean Corpuscular Volume 87.8 fl (80-94); Mean Platelet Volume 8.4 fl (7.4-10.4); Monocytes # 0.6 K/mm3 (0.1-1.0); Monocytes % 9.3 % (1.7-9.3); Neutrophils # 3.1 K/mm3 (1.8-7.8); Neutrophils % 51.7 % (37.0-80.0); Platelet Count 261 K/mm3 (142-424); Red Blood Count 4.96 M/mm3 (4.60-6.20); Red Cell Distribution Width 14.4 % (11.5-17.5); White Blood Count 5.9 K/mm3 (4.8-10.8)
[2023-02-19 20:55] LABS: Hemoglobin A1C 6.4 % (4.0-6.0)
[2023-02-19 21:59] LABS: Thyroid Stimulating Hormone 2.71 uIU/mL (0.465-4.68)
== END ==
PROVIDERS: PCP Internal Medicine; Visit Provider Internal Medicine
DX: E03.9 Hypothyroidism, unspecified (principal); R10.32 Left lower quadrant pain; Z23 Encounter for immunization
CPT/HCPCS: 83036; 84443; 85025

== ENCOUNTER 2023-07-23 14:38 | Outpatient (CLI) | payer OTHER, SELFPAY ==
[2023-07-23 15:02] LABS: Basophils # 0.1 K/mm3 (0-0.2); Basophils % 1.1 % (0.1-2.0); Eosinophils # 0.2 K/mm3 (0.0-0.4); Eosinophils % 3.3 % (0.1-12.0); Hematocrit 47.2 % (42.0-52.0); Hemoglobin 15.6 g/dL (14.1-18.0); Lymphocytes # 2.6 K/mm3 (0.7-4.5); Lymphocytes % 40.4 % (10-50); Mean Corpuscular Hemoglobin 29.4 pg (27.0-31.2); Mean Corpuscular Volume 88.9 fl (80-94); Mean Platelet Volume 7.7 fl (7.4-10.4); Monocytes # 0.6 K/mm3 (0.1-1.0); Monocytes % 8.7 % (1.7-9.3); Neutrophils % 46.5 % (37.0-80.0); Platelet Count 271 K/mm3 (142-424); Red Blood Count 5.31 M/mm3 (4.60-6.20); Red Cell Distribution Width 14.6 % (11.5-17.5); White Blood Count 6.5 K/mm3 (4.8-10.8)
== END 2023-07-23 23:59 ==
LOC: LAB 14:39
PROVIDERS: PCP Internal Medicine; Visit Provider Internal Medicine
DX: R10.31 Right lower quadrant pain (principal)
CPT/HCPCS: 36415; 85025

== ENCOUNTER 2023-11-03 09:22 | Emergency (ER) | payer OTHER, MEDICARE, SELFPAY ==
[2023-11-03 09:30] VITALS: BP 137/87; PULSE 68; RESP 18; TEMP 36.7; O2SAT 98; BMI 28.2
--- NOTE | 2023-11-03 09:46 | ED_ITS ---
Discharge Plan Disposition Patient Disposition: Home, Self-Care Condition: Good Prescriptions Prescriptions: New methylprednisolone 4 mg Tablets,Dose Pack 4 mg PO DIRECTED 6 Days Qty: 21 0RF Rx Instructions: Take 1 pack as directed for 6 days azithromycin [Zithromax] 250 mg tablet 250 mg PO UD DOSE PK Qty: 6 0RF Rx Instructions: Take two (2) tablets today, then one (1) tablet days #2 thru #5 benzonatate 100 mg capsule 100 mg PO TIDP PRN (Reason: Cough) Qty: 30 0RF No Action levothyroxine 75 mcg capsule 75 mcg PO DAILY nitroglycerin 0.4 mg tablet, sublingual 0.4 mg SL ONCE PRN (Reason: chest pain ) Referrals Follow up/Referrals: Abisai Joy MD [Primary Care Provider] - See instructions Activity Restrictions/Add. Instructions Additional Instructions/Restrictions: Drink plenty of fluids. Take tylenol or ibuprofen for pain or fever. Take the medications as directed. Follow up with your regular doctor. GO TO THE ER FOR ANY WORSENING SYMPTOMS Clinical Impressions Clinical Impression: Sinusitis, Acute bronchitis Instructions Patient Instructions: Sinusitis, DI for Sinusitis Discharge ED Provider: Wesley Medina [facility] General Stated complaint: chest congestion sinus pain headache Mode of Arrival: Ambulatory Source of Information: Patient Limitations: No Limitations Time Seen by Provider: 11/03/23 09:45 Description of Symptoms (Recalled from Triage Doc. by RN): Pt's symptoms are chest congestion, and sinus pressure. HEENT Symptoms (Recalled from RN notes): Yes Resp Symptoms (Recalled from RN notes): No Skin Symptoms (Recalled from RN notes): No MS Symptoms (Recalled from RN notes): No Functional Status (Recalled from RN notes): n/a Related Data Home Medications Medication Instructions Recorded Confirmed levothyroxine 75 mcg capsule 75 mcg PO DAILY hormone replacement 08/02/20 11/03/23 nitroglycerin 0.4 mg sublingual 0.4 mg sublingual ONCE PRN chest 10/31/2111/02 tablet pain Previous Rx's Medication Instructions Recorded azithromycin 250 mg tablet 250 mg PO UD DOSE PK #6 tabs 11/03/23 (Zithromax) benzonatate 100 mg capsule 100 mg PO TIDP PRN Cough #30 caps 11/03/23 methylprednisolone 4 mg tablets in 4 mg PO DIRECTED 6 days #21 tabs 11/03/23 a dose pack Allergies Allergy/AdvReac Type Severity Reaction Status Date / Time gabapentin Allergy Intermediate Verified 11/03/23 09:40 nortriptyline Allergy Verified 11/03/23 09:40 From NIASPAN Allergy Intermediate PASSED OUT Uncoded 10/18/20 12:57 PCN (PENICILLIN) Allergy Intermediate I-RASH Uncoded 10/18/20 12:57 Worker's Comp Is this a Worker's Comp case?: No [facility] Disclaimer: The information contained in this section may have been updated after the patient was seen, as this information can be updated by other users. Medical History (Updated 11/03/23 @ 10:17 by Wesley Medina APRN) Abnormal electrocardiography Crescendo angina Family history of heart disease Dyspnea Chest pain Social History Smoking Status: Never smoker alcohol intake: never substance use type: denies use current occupational status: unemployed Travel in the last 8 weeks: None household members: spouse housing: house current occupation: 3M current occupational exposures/hazards: No caffeine: Yes ROS Obtained: Yes All systems reviewed & no additional complaints except as documented Constitutional Constitutional: Reports poor appetite Eyes Eyes: Reports system reviewed and no additional complaints, except as documented ENT Ears, Nose, Mouth, and Throat: Reports as per HPI Cardiovascular Cardiovascular: Reports system reviewed and no additional complaints, except as documented and Denies chest pain Respiratory Respiratory: Denies shortness of breath, Reports chest congestion, Reports cough, Denies stridor and Denies wheezing Gastrointestinal Gastrointestingal: Reports system reviewed and no additional complaints, except as documented; Denies abdominal pain, diarrhea or vomiting Musculoskeletal Musculoskeletal: Reports system reviewed and no additional complaints, except as documented and Denies arthralgias Integumentary/Breasts Skin/Breast: Reports system reviewed and no additional complaints, except as documented and Denies rash Neurologic Neurologic: Denies paresthesias Allergic/Immunologic Allergic/Immunologic: Denies wheezing Physical Exam General General appearance: alert and in no apparent distress Eye Eye exam: Present normal appearance, PERRL and EOMI ENT ENT exam: Present mucous membranes moist and normal external ear exam Expanded ENT Exam External ear exam: Present normal external inspection TM/Canal exam: Bilateral TM: erythema and bulging Nose exam: Absent sinus tenderness Nasal speculum exam: Bilateral: normal Mouth exam: Present normal external inspection; Absent drooling Teeth exam: Present normal inspection Throat exam: Present tonsillar erythema and tonsillomegaly Neck Neck exam: Present normal inspection, full ROM and trachea midline; Absent tenderness, lymphadenopathy or thyromegaly Chest Chest inspection: Present normal inspection and symmetric chest wall rise; Absent tenderness or rash Respiratory Respiratory exam: Present normal lung sounds bilaterally; Absent respiratory distress, wheezes, stridor or accessory muscle use Cardiovascular Cardiovascular exam: Present regular rate, normal rhythm and normal heart sounds Abdominal Exam Abdominal exam: Present soft; Absent distention, tenderness, guarding, rebound or rigidity Extremities Exam Extremities exam: Present normal inspection, full ROM and normal capillary refill; Absent tenderness or calf tenderness Back Exam Back exam: Present normal inspection and full ROM; Absent tenderness Neurological Exam Neurological exam: Present alert and oriented X3 Psychiatric Psychiatric exam: Present normal affect and normal mood Skin Skin exam: Present warm, dry, intact and normal color Lymphatic Lymphatic Findings: no adenopathy Medical Decision Making Medical Records Medical records reviewed: No I reviewed the patient's medical records. Aditya Inquiry Pt receiving controlled substance: No Vital Signs: 11/03/23 09:30 Temperature 98.0 F Temperature Source Oral Pulse Rate [Right Radial] 68 Respiratory Rate 18 Blood Pressure [Right Arm] 137/87 Blood Pressure Mean [Right Arm] 103 Blood Pressure Source [Right Arm] Automatic Cuff Blood Pressure Position [Right Arm] Sitting 02 Sat by Pulse Oximetry 98 Oxygen Delivery Method Room Air Lab Data Lab results reviewed: Yes I reviewed the patient's lab results.
[2023-11-03 10:22] VITALS: BP 137/87; PULSE 68; RESP 18; TEMP 36.7; O2SAT 98
== END 2023-11-03 10:22 | disposition home or self-care (01) ==
PROVIDERS: Emergency Provider Nurse Practitioner Family; PCP Internal Medicine
DX: J20.9 Acute bronchitis, unspecified (principal); J01.90 Acute sinusitis, unspecified; R51.9 Headache, unspecified
CPT/HCPCS: 99212; 99214; G0463

== ENCOUNTER 2023-11-14 15:46 | Outpatient (CLI) | payer OTHER, MEDICARE, SELFPAY ==
--- NOTE | 2023-11-14 | CA_ITS ---
FINAL REPORT TECHNIQUE: Color Doppler, duplex Doppler and compression sonography of the right lower extremity venous system was performed. CLINICAL HISTORY: Right calf tightness/edema, previous DVT COMPARISON: None FINDINGS: There is no evidence of deep venous thrombosis from the level of the groin to the calf. The veins are patent and compressible. IMPRESSION: No evidence of deep venous thrombosis right lower extremity. Reviewed, Interpreted and Dictated by Rodolfo Williamson III, MD Transcribed by Lidia Garcia Authenticated and [facility]
== END 2023-11-14 23:59 | disposition home or self-care (01) ==
PROVIDERS: PCP Internal Medicine; Visit Provider Internal Medicine
DX: R60.0 Localized edema (principal); I80.3 Phlebitis and thrombophlebitis of lower extremities, unspecified
CPT/HCPCS: 93971

== ENCOUNTER 2023-11-16 15:52 | Emergency (ER) | payer OTHER, MEDICARE, SELFPAY ==
[2023-11-16 15:53] VITALS: BP 147/63; PULSE 78; RESP 18; TEMP 36.7; O2SAT 96; BMI 28.3
--- NOTE | 2023-11-16 16:11 | ED_ITS ---
Discharge Plan Disposition Patient Disposition: Home, Self-Care Prescriptions Prescriptions: New Xarelto DVT-PE Treat 30d Start 15 mg (42)- 20 mg (9) tablets,dose pack See Rx Instructions .ROUTE .COMPLEX Qty: 51 0RF Rx Instructions: take one-15 mg tablet twice daily for 21 days, then one-20 mg tablet once daily; must take with meal/food Xarelto 20 mg tablet 20 mg PO DAILY Qty: 60 0RF Rx Instructions: must administer with evening meal for months 2-3 No Action levothyroxine 75 mcg capsule 75 mcg PO DAILY nitroglycerin 0.4 mg tablet, sublingual 0.4 mg SL ONCE PRN (Reason: chest pain ) Referrals Follow up/Referrals: Abisai Joy MD [Primary Care Provider] - See instructions Activity Restrictions/Add. Instructions Additional Instructions/Restrictions: Xarelto starter as prescribed. 15 mg tablet 2 times a day for the first 3 weeks. From then on take a single 20 mg tablet daily with food. 3-month supply has been sent to the pharmacy. Call your family doctor to establish care for this visit to the emergency department and schedule follow-up within 48 hours to ensure improvement. If you have any worsening of your condition or any other concerning signs or symptoms, return to the emergency department or your primary care doctor for further evaluation. Clinical Impressions Clinical Impression: Superficial thrombophlebitis, Acute superficial venous thrombosis of right lower extremity Discharge ED Provider: Billy Lara General Adult HPI General Chief complaint: Extremity Problem,Nontraumatic Stated complaint: RT leg pain, redness Time Seen by Provider: 11/16/23 15:56 History of Present Illness HPI narrative: Please note that above description of symptoms, in this electronic medical record under categorization of recalled from ER triage doctor by RN are reflec tive of an initial nursing assessment, however, is not reflective of my full history and physical exam that was personally taken and clarified. Consequentially, this preceding description of symptoms, which may include the patient's categorized chief complaint in the EMR, do not reflect my personal clinical impression, and the ultimate description of history of present illness and patient stated complaints should be deferred to this section of the note. Unless stated otherwise or congruent with this section of the note, additional signs, symptoms, or incongruence should be interpreted as inaccurate with my clinical impression. Related Data Home Medications Medication Instructions Recorded Confirmed levothyroxine 75 mcg capsule 75 mcg PO DAILY hormone replacement 08/02/20 11/14/23 nitroglycerin 0.4 mg sublingual 0.4 mg sublingual ONCE PRN chest 10/31/21 11/14/23 tablet pain Previous Rx's Medication Instructions Recorded rivaroxaban 15 mg (42)-20 mg (9) See Rx Instructions PO .COMPLEX 11/16/23 tablets in a starter pack (Xarelto #51 tabs DVT-PE Treatment 30-Day Starter) rivaroxaban 20 mg tablet (Xarelto) 20 mg PO DAILY #60 tabs 11/16/23 Allergies Allergy/AdvReac Type Severity Reaction Status Date / Time gabapentin Allergy Intermediate Verified 11/14/23 14:58 nortriptyline Allergy Verified 11/14/23 14:58 From NIASPAN Allergy Intermediate PASSED OUT Uncoded 11/14/23 14:58 PCN (PENICILLIN) Allergy Intermediate I-RASH Uncoded 11/14/23 14:58 [facility] Disclaimer: The information contained in this section may have been updated after the patient was seen, as this information can be updated by other users. Medical History Abnormal electrocardiography Crescendo angina Family history of heart disease Dyspnea Chest pain Social History Smoking Status: Never smoker alcohol intake: never substance use type: denies use current occupational status: unemployed Travel in the last 8 weeks: None household members: spouse housing: house current occupation: [employer] current occupational exposures/hazards: No caffeine: Yes ROS Obtained: Yes All systems reviewed & no additional complaints except as documented Physical Exam General General appearance: alert Head Head exam: atraumatic and normocephalic Eye Eye exam: Present normal appearance, PERRL and EOMI Neck Neck exam: Present normal inspection, full ROM and trachea midline Respiratory Respiratory exam: Absent respiratory distress, wheezes, stridor, accessory muscle use or prolonged expiratory phase Cardiovascular Cardiovascular exam: Present other (Pulses equal symmetric in upper and lower extremities) Abdominal Exam Abdominal exam: Present soft; Absent distention, tenderness or pulsatile mass Extremities Exam Extremities exam: Present other (Tenderness, erythema, palpable cord just medial to right tibia. Neurovascular intact distally.); Absent edema Neurological Exam Neurological exam: Present alert, oriented X3 and CN II-XII intact; Absent motor sensory deficit Skin Skin exam: Present warm and dry; Absent diaphoresis or erythema Medical Decision Making Medical Records Medical records reviewed: Yes I reviewed the patient's medical records. Aditya Inquiry Pt receiving controlled substance: No Aditya was queried for this patient: No Vital Signs: 11/16/23 15:53 Temperature 98.1 F Temperature Source Oral Pulse Rate [Radial] 78 Respiratory Rate 18 Blood Pressure [Right Arm] 147/63 H Blood Pressure Mean [Right Arm] 91 Blood Pressure Source [Right Arm] Automatic Cuff Blood Pressure Position [Right Arm] Sitting 02 Sat by Pulse Oximetry 96 Oxygen Delivery Method Room Air Orders (Tests/Meds): ED MEDICATIONS Generic Name Dose Route Start Last Admin Trade Name Freq PRN Reason Stop Dose Admin Rivaroxaban 1 packet 11/16/23 16:50 Xarelto 15mg Thp 1 Packet Mian PO 11/16/23 16:51 ONCE ONE ORDERS Category Date Time Status POCUS Point of Care (ER Only) Stat Exams 11/16/23 16:05 Ordered Medical Decision Narrative: 63-year-old male history of unprovoked DVT in the past not currently on anticoagulation presenting with swelling in his medial aspect of his right leg. Noticed it today while he was working outside. He is not sedentary, no history of cancer in him, no recent trauma to the area. It is mildly tender, does not radiate. History was obtained via conversation with patient. On arrival, patient hemodynamically stable, alert, oriented x4, appropriate, GCS 15, moving all extremities spontaneously, pupils equal and reactive to light. Full physical exam performed and significant for tenderness, erythema, palpable cord medial aspect of right tibia about midway down leading and ankle. Neurovascular intact distally. Ambulatory without issue. Differential includes phlebitis, DVT, coagulopathy, among others. Bedside [id number] ultrasound demonstrated superficial thrombophlebitis and superficial venous thrombosis extending from right ankle nearly all the way to medial aspect of right knee in saphenous vein. Xarelto starter pack given and first dose given here. Patient sent 3 months of Xarelto to the pharmacy. Because patient at baseline without signs or symptoms of clinical decompensation, deemed appropriate for discharge. Results were relayed to patient who voiced understanding and were agreeable to outpatient management and follow up. I discussed my clinical impression with patient and answered all questions. At this time, the evidence for any other entities in the differential is insufficient to warrant any further testing or ED observation. This was explained as well. Advisory was given that persistent or worsening symptoms require further evaluation. I confirmed the understanding of this discussion. Automatic Maintainer disclaimer Much of this encounter note is an electronic clin asst spoken language to printed text. Electronic clin asst of the spoken language may permit errors. Although I have reviewed the note, some errors may still exist. Critical Care Critical Care Time Critical Care Time: No
[2023-11-16 17:08] VITALS: BP 140/60; PULSE 78; RESP 18; TEMP 36.8; O2SAT 98
== END 2023-11-16 17:16 | disposition home or self-care (01) ==
PROVIDERS: Emergency Provider Emergency Medicine; PCP Internal Medicine
DX: I82.811 Embolism and thrombosis of superficial veins of right lower extremity (principal); M79.604 Pain in right leg
CPT/HCPCS: 99284

== ENCOUNTER 2024-02-01 09:39 | Outpatient (CLI) | payer OTHER, MEDICARE, SELFPAY ==
[2024-02-02 15:10] LABS: Anti-Cardio Antibody IgM <9 MPL U/mL (0-12); Anti-Cardiolipin Antibody IgG <9 GPL U/mL (0-14)
[2024-02-03 16:22] LABS: Anti-Thrombin III Antigen 86 % (72-124); Protein C Functional 136 % (73-180)
[2024-02-03 17:09] LABS: Lupus Reflex Interpretation Comment: (.); PTT-LA 38.5 sec (0.0-43.5); dRVVT 37.8 sec (0.0-47.0)
[2024-02-04 15:19] LABS: Miscellaneous Test SCANNED IMAGE
[2024-02-04 16:44] LABS: Beta-2 Glycoprotein I Ab, IgG <9 (0-20); Beta-2 Glycoprotein I Ab, IgM <9 (0-32)
== END 2024-02-01 23:59 | disposition home or self-care (01) ==
LOC: LAB 09:41
PROVIDERS: PCP Internal Medicine; Visit Provider Internal Medicine Medical Oncology
DX: D68.59 Other primary thrombophilia (principal)
CPT/HCPCS: 36415; 81240; 81241; 85301; 85302; 85613; 86146; 86147

== ENCOUNTER 2024-04-08 16:34 | Outpatient (CLI) | payer OTHER, MEDICARE, SELFPAY ==
[2024-04-08 13:29] LABS: Basophils % 0.8 % (0.1-2.0); Eosinophils # 0.2 K/mm3 (0.0-0.4); Eosinophils % 3.3 % (0.1-12.0); Hematocrit 46.4 % (42.0-52.0); Hemoglobin 15.1 g/dL (14.1-18.0); Lymphocytes % 38.4 % (10-50); Mean Corpuscular HGB Conc 32.5 g/dL (31.8-35.4); Mean Corpuscular Hemoglobin 28.2 pg (27.0-31.2); Mean Platelet Volume 7.4 fl (7.4-10.4); Monocytes # 0.5 K/mm3 (0.1-1.0); Neutrophils # 2.5 K/mm3 (1.8-7.8); Neutrophils % 48.5 % (37.0-80.0); Platelet Count 259 K/mm3 (142-424); Red Blood Count 5.33 M/mm3 (4.60-6.20); Red Cell Distribution Width 14.2 % (11.5-17.5); White Blood Count 5.2 K/mm3 (4.8-10.8)
[2024-04-08 14:10] LABS: Alanine Aminotransferase 24 U/L (12-78); Albumin Level 4.6 g/dl (3.5-5.0); Albumin/Globulin Ratio 1.8 (1.1-1.8); Alkaline Phosphatase 88 U/L (38-126); Anion Gap 11.5 mEq/L (5-15); Aspartate Amino Transferase 32 U/L (17-59); Bilirubin,Total 0.4 mg/dl (0.2-1.3); Blood Urea Nitrogen 18 mg/dl (9-20); Calcium 9.3 mg/dl (8.4-10.2); Carbon Dioxide 28 mmol/L (22.0-30.0); Chloride 104 mmol/L (98-107); Chol/HDL Ratio 4.3 (1-3.5); Cholesterol 151 mg/dl (140-200); Estimated Glomerular Filt Rate 67 ml/min (>60); GFR (African American) 81 ML/MIN (>60); Globulin 2.6 g/dL (1.3-3.2); Glucose 110 mg/dl (74-100); HDL Cholesterol 35 mg/dl (40-60); Potassium 4.5 mmoL/L (3.5-5.1); Sodium 139 mmol/L (136-145); Total Protein,Serum 7.2 g/dl (6.3-8.2); Triglycerides 164 mg/dl (30-150); VLDL Cholesterol 33 mg/dL (0-40)
[2024-04-08 14:21] LABS: Direct LDL Cholesterol 89.38 mg/dL (100-129)
[2024-04-08 14:36] LABS: Prostate Specific Ag Screen 1.8 ng/ml (0.0-4.0); Thyroid Stimulating Hormone 1.34 uIU/mL (0.465-4.68)
[2024-04-08 15:09] LABS: Hemoglobin A1C 6.6 % (4.0-6.0)
== END 2024-04-08 23:59 | disposition home or self-care (01) ==
LOC: LAB.DROPOF 16:35
PROVIDERS: PCP Internal Medicine; Visit Provider Internal Medicine
DX: D68.59 Other primary thrombophilia (principal); R73.02 Impaired glucose tolerance (oral); E03.9 Hypothyroidism, unspecified; E78.5 Hyperlipidemia, unspecified; Z12.5 Encounter for screening for malignant neoplasm of prostate
CPT/HCPCS: 36415; 80050; 80053; 80061; 83036; 84443; 85025; G0103

== ENCOUNTER 2024-07-28 17:10 | Outpatient (CLI) | payer OTHER, MEDICARE, SELFPAY | END 2024-07-28 23:59 | disposition home or self-care (01) | LOC: LAB.DROPOF 07-29 14:34 | PROVIDERS: PCP Internal Medicine; Visit Provider Internal Medicine | DX: B34.9 Viral infection, unspecified (principal) | CPT/HCPCS: 87635 ==

== ENCOUNTER 2024-07-30 06:32 | Emergency (ER) | payer OTHER, MEDICARE, SELFPAY ==
[2024-07-30 06:39] VITALS: BP 137/82; PULSE 76; RESP 16; TEMP 36.9; O2SAT 100; BMI 28.0
--- NOTE | 2024-07-30 06:43 | ED_ITS ---
Discharge Plan Disposition Patient Disposition: Home, Self-Care Condition: Good Prescriptions Prescriptions: No Action omeprazole magnesium [Prilosec OTC] 20 mg tablet,delayed release (DR/EC) 20 mg PO DAILY nitroglycerin 0.4 mg tablet, sublingual 0.4 mg SL ONCE PRN (Reason: chest pain ) levothyroxine 75 mcg tablet See Rx Instructions .ROUTE .COMPLEX Qty: 90 1RF Dose Instruction: TAKE ONE TABLET BY MOUTH EVERY DAY Rx Instructions: TAKE ONE TABLET BY MOUTH EVERY DAY Referrals Follow up/Referrals: Abisai Joy MD [Primary Care Provider] - See instructions Activity Restrictions/Add. Instructions Additional Instructions/Restrictions: You were evaluated in the ER and are appropriate for discharge at this time. Continue home medications as prescribed. Drink plenty of fluids. Please make an appointment with your primary care doctor for reevaluation in 2 to 3 days. Find the results of the viral swab and the patient portal or call back to the hospital in a few hours for the results. Return to the ER with any new, worsening, or otherwise concerning symptoms. Clinical Impressions Clinical Impression: Cough, Pharyngitis, Nasal congestion Stand Alone Forms Stand Alone Forms: Work/School Release Print Language Print Language: Tuvaluan Discharge ED Provider: Mega Cardenas Adult HPI General Chief complaint: Upper Respiratory Infection Stated complaint: chest congestion, fever, cough sore throat Time Seen by Provider: 07/30/24 06:40 Mode of Arrival: Ambulatory Source of Information: Patient Description of Symptoms (Recalled from ER Triage Doc. by RN): cough since Sunday History of Present Illness HPI narrative: 63-year-old male with history of hypothyroid presents to the ER for complaints of nasal congestion, cough, chest congestion, sore throat. Patient reports symptoms started Sunday and are unchanged. He saw Dr. Joy and was negative for flu. He never got results of the COVID test. Patient states he has had temperature up to 99 but no documented fevers. He does not report taking any medications for his symptoms at this time. No difficulty breathing. Nonproductive cough. No chest pain, dizziness, abdominal pain, nausea, vomiting, numbness, tingling, weakness, or any other associated symptoms. No other complaints or concerns. Related Data Home Medications ?Medication ?Instructions ?Recorded ?Confirmed nitroglycerin 0.4 mg sublingual 0.4 mg sublingual ONCE PRN chest 10/31/21 07/28/24 tablet pain omeprazole magnesium 20 mg 20 mg PO DAILY 04/08/24 07/28/24 tablet,delayed release (Prilosec OTC) Previous Rx's ?Medication ?Instructions ?Recorded levothyroxine 75 mcg tablet See Rx Instructions .Route 02/12/24 .COMPLEX #90 tabs Allergies Allergy/AdvReac Type Severity Reaction Status Date / Time gabapentin Allergy Intermediate Verified 07/28/24 16:11 nortriptyline Allergy Verified 07/28/24 16:11 From NIASPAN Allergy Intermediate PASSED OUT Uncoded 02/01/24 08:59 PCN (PENICILLIN) Allergy Intermediate I-RASH Uncoded 02/01/24 08:59 PFSH PFS Disclaimer: The information contained in this section may have been updated after the patient was seen, as this information can be updated by other users. Medical History Abnormal electrocardiography Crescendo angina Family history of heart disease Dyspnea Chest pain Social History Smoking Status: Never smoker alcohol intake: never substance use type: denies use current occupational status: unemployed Travel in the last 8 weeks: None household members: spouse housing: house current occupation: [employer] current occupational exposures/hazards: No caffeine: Yes Other Medical History Have you received the Flu Vaccine for this season: Yes Have you received the Pneumonia Vaccine: Yes ROS Obtained: Yes Systems reviewed as appropriate & no additional complaints except as documented Per HPI Physical Exam General General appearance: alert and in no apparent distress Head Head exam: atraumatic and normocephalic Eye Eye exam: Present PERRL and EOMI ENT ENT exam: Present mucous membranes moist, TM's normal bilaterally and other (Posterior oropharynx mildly erythematous with postnasal drip, no tonsillomegaly, no tonsillar exudates) Neck Neck exam: Present normal inspection and full ROM; Absent lymphadenopathy Chest Chest inspection: Present symmetric chest wall rise Respiratory Respiratory exam: Present normal lung sounds bilaterally (Good air movement throughout with no adventitious sounds) and other (Saturating 98% on room air); Absent respiratory distress, wheezes or stridor Cardiovascular Cardiovascular exam: Present regular rate and normal rhythm Extremities Exam Extremities exam: Present full ROM; Absent edema Neurological Exam Neurological exam: Present alert, oriented X3 and normal gait; Absent motor sensory deficit Psychiatric Psychiatric exam: Present normal affect and normal mood Skin Skin exam: Present warm and dry Medical Decision Making Medical Records Medical records reviewed: Yes I reviewed the patient's medical records. Screening: Per USPSTF and CDC recommendations, given the prevalence of disease in our region, it is our hospital?s policy to screen for HIV and viral Hepatitis for all patients aged 18 and over and those with ongoing risk factors. MR Comment: Reviewed labs from 07/28/2024 which demonstrate patient is negative for influenza, there does not appear to be a COVID test. Aditya Inquiry Pt receiving controlled substance: No Vital Signs: 07/30/24 06:39 Temperature 98.5 F Temperature Source Oral Pulse Rate [Right Brachial] 76 Respiratory Rate 16 Blood Pressure [Right Arm] 137/82 Blood Pressure Mean [Right Arm] 100 Blood Pressure Source [Right Arm] Automatic Cuff Blood Pressure Position [Right Arm] Sitting 02 Sat by Pulse Oximetry 100 Oxygen Delivery Method Room Air Orders (Tests/Meds): ORDERS Category Date Time Status HIV Combo Routine Lab 07/30/24 06:42 Ordered Hepatitis C Ab Qual. W/ RFX Routine Lab 07/30/24 06:42 Ordered Rapid PCR Covid and Flu A/B Stat Lab 07/30/24 06:40 Ordered Medical Decision Narrative: In summary, this 63-year-old male with comorbidities described in the HPI which are managed by his PCP presents to the emergency department today with cough, congestion, sore throat. On initial evaluation patient is hemodynamically stable, afebrile, well-appearing, saturating well on room air, lungs clear bilaterally with no adventitious sounds, good air movement throughout, mild posterior oropharyngeal erythema without tonsillomegaly or exudates, no lymphadenopathy, TMs normal bilaterally, remainder of exam benign. Differential diagnosis includes but is not limited to viral syndrome including COVID, influenza, also considered the possibility of other virus. I considered the possibility of pneumonia but patient is afebrile, saturating well on room air, no adventitious sounds, no chest pain, nonproductive cough. Much lower suspicion for pneumonia at this time. I had considered performing chest x-ray but will not do this at this time given the very low pretest probability. 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 Therefore viral swab was collected. Since results will not meter changes records clerk, patient was not kept in the ER for results. At the time of discharge he asked for a work note for today. This was provided. He was given instructions on continued symptomatic monitoring, management, follow-up instructions including to find the results in the patient portal or to call back to the hospital for results, and strict re turn precautions for the ER. He indicated understanding and the patient was discharged in stable condition. Critical Care Critical Care Time Critical Care Time: No
[2024-07-30 06:44] VITALS: BP 137/82; PULSE 76; RESP 16; TEMP 36.9; O2SAT 100
== END 2024-07-30 06:48 | disposition home or self-care (01) ==
LOC: ER 06:47
PROVIDERS: Emergency Provider Emergency Medicine; PCP Internal Medicine
DX: R09.81 Nasal congestion (principal); R05.9 Cough, unspecified; R09.89 Other specified symptoms and signs involving the circulatory and respiratory systems; J02.9 Acute pharyngitis, unspecified
CPT/HCPCS: 99281

== ENCOUNTER 2024-08-02 10:58 | Outpatient (CLI) | payer OTHER, MEDICARE, SELFPAY ==
--- NOTE | 2024-08-02 11:00 | XR_ITS ---
PROCEDURE INFORMATION: Exam: XR Chest Exam date and time: 08/02/2024 10:55 AM Age: 63 years old Clinical indication: Cough TECHNIQUE: Imaging protocol: Radiologic exam of the chest. Views: 2 views. Total images: 2 COMPARISON: CR XR CHEST 2V 07/27/2021 11:04 AM FINDINGS: Lungs: Bilateral hyperinflation is present. Atelectatic and/or fibrotic changes noted within the left lung base. No focal pneumonia. Pleural spaces: Unremarkable. No pleural effusion. No pneumothorax. Heart/Mediastinum: Unremarkable. No cardiomegaly. Bones/joints: The thoracic spine demonstrates mild degenerative changes at multiple levels. IMPRESSION: 1. Bilateral hyperinflation is present. 2. Atelectatic and/or fibrotic changes noted within the left lung base. 3. No focal pneumonia.
== END 2024-08-02 23:59 | disposition home or self-care (01) ==
PROVIDERS: PCP Internal Medicine; Visit Provider Nurse Practitioner Family
DX: R05.9 Cough, unspecified (principal)
CPT/HCPCS: 71046

== ENCOUNTER 2024-11-14 09:07 | Day surgery (SDC) | payer OTHER, MEDICARE, SELFPAY ==
--- NOTE | 2024-11-14 08:22 | EXP.GEN.HP ---
HPI HPI HPI: Patient is a 64-year-old male whom I had previously seen for gallbladder. He underwent cholecystectomy in 2020. He is an [employer] employee. Patient's older sister recently diagnosed with colon cancer. His father had colon cancer as well. Patient has not had a prior colonoscopy for at least 15 years. [facility] Disclaimer: The information contained in this section may have been updated after the patient was seen, as this information can be updated by other users. Medical History Abnormal electrocardiography Crescendo angina Family history of heart disease Dyspnea Chest pain Social History Smoking Status: Never smoker alcohol intake: never substance use type: denies use current occupational status: unemployed Travel in the last 8 weeks?: None household members: spouse housing: house current occupation: [employer] current occupational exposures/hazards: No caffeine: Yes Have you lived/traveled outside [place] in past 30 days?: No Contact w/someone who lives/traveled outside US past 30 days?: No Exposure to someone with infectious disease in past 14 days?: No Do you have a fever (greater than 100.4 F or 38 C)?: No Have you tested positive for COVID-19?: No Exposed to someone with COVID-19 in past 14 days?: No Do you have a sore throat?: No Do you have a cough?: No Do you have any weakness?: No Do you have any diarrhea?: No Are you experiencing any unusual bleeding?: No Do you have any muscle aches/pain?: No Do you have any abdominal pain?: No Are you experiencing loss of taste or smell?: No Other Medical History Have you received the Flu Vaccine for this season: Yes Have you received the Pneumonia Vaccine: No Meds Home Medications and Allergies Home Medications ?Medication ?Instructions ?Recorded ?Confirmed ?Type nitroglycerin 0.4 mg sublingual 0.4 mg sublingual ONCE PRN chest 10/31/21 11/14/24 History tablet pain omeprazole magnesium 20 mg 20 mg PO DAILY 04/08/24 11/14/24 History tablet,delayed release (Prilosec OTC) levothyroxine 75 mcg tablet See Rx Instructions .Route 08/08/24 11/14/24 Rx .COMPLEX #90 tabs sodium,potassium,mag sulfates 17.5 See Rx Instructions PO .COMPLEX 10/28/24 11/14/24 Rx gram-3.13 gram-1.6 gram oral soln #354 mL (Suprep Bowel Prep Kit) New Prescriptions to Start Prescriptions: Allergies Allergy/AdvReac Type Severity Reaction Status Date / Time gabapentin Allergy Intermediate Hives Verified 11/13/24 12:54 niacin (From Niaspan Allergy Anaphylaxis Verified 11/13/24 12:54 Extended-Release) nortriptyline Allergy Hives Verified 11/13/24 12:54 Penicillins Allergy Hives Verified 11/13/24 12:54 Exam Constitutional Constitutional: no acute distress *Routine HEENT Exam Head: Present normocephalic Eye: Present EOMI and PERRL ENT: Present mucous membranes moist *Routine Neck Exam Neck: Present supple; Absent lymphadenopathy *Routine Respiratory Exam Respiratory: Present CTA bilaterally *Routine Cardiovascular Exam Cardiovascular: Present RRR *Routine Abdominal Exam Abdominal: Present soft and normoactive bowel sounds; Absent tenderness *Routine Rectal Exam Rectal:: deferred *Routine Genitalia Exam Genitalia:: deferred *Routine Extremities Exam Extremities: Absent cyanosis, clubbing or edema *Routine Skin Exam Skin: Present warm; Absent rash *Routine Neurological Exam Neurological: Present alert and oriented X3 Assessment and Plan *Assessment and plan (1) Family history of colon cancer: Status: Acute Category: Medical Code(s): Z80.0 - Family history of malignant neoplasm of digestive organs Plan Colonoscopy
[2024-11-14 09:17] VITALS: BP 144/80; PULSE 66; RESP 18; TEMP 36.1; O2SAT 97; BMI 28.2
--- NOTE | 2024-11-14 10:01 | [facility].SCOPE ---
Procedure: Date: 11/14/24 Patient Date of :: 1960 Procedure Performed:: Total colonoscopy to terminal ileum Indications:: Patient is a 64-year-old male whom I had previously seen for gallbladder. He underwent cholecystectomy in 2020. He is an [employer] employee. Patient's older sister recently diagnosed with colon cancer. His father had colon cancer as well. Patient has not had a prior colonoscopy for at least 15 years. . Performing Provider:: Rodolfo Oreilly MD Referring Provider:: Abisai Joy MD Sedation:: MAC sedation Procedure:: Patient history was obtained and appropriate physical examination was performed. Patient's medications and allergies were reviewed. Informed consent was obtained after explaining the benefits, alternatives, and risks of the procedure including, but not limited to, bleeding, perforation, missed lesions, and adverse reaction to anesthesia medications. Patient was transported to endoscopy procedure room. Patient was connected to monitoring devices. Throughout the procedure the patient's blood pressure, pulse, and oxygen saturations were monitored continuously. Patient identification and planned procedure were verified by the staff. Patient was positioned in lateral decubitus position. Digital anorectal exam was performed. Variable stiffness Olympus colonoscope was inserted and advanced under direct visualization to the cecum. Adequacy of the colonic preparation was noted. The colonoscope was advanced a short distance into the terminal ileum. The colonoscope was then slowly withdrawn while carefully examining the color, texture, anatomy, and integrity of the mucosoa circumferentially. Within the rectum retroflexion was performed. Colonoscope was then withdrawn. Impression: Colonic preparation was excellent. There were some minimal sigmoid diverticuli. He had some prolapsing external hemorrhoids. Otherwise colonoscopy unremarkable. Findings:: Some external hemorrhoids Recommendations:: Repeat colonoscopy within 5 years given family history. Complications:: None immediately apparent Estimated blood obtained (mL): 0 Colonoscopy Component Colonoscopy Component Was a colonoscopy performed during today's procedure?: Yes Recommended follow up colonoscopy of at least 10 years?: No If no, follow up colonoscopy recommended in ___ years?: 5 Reason for not recommending >/= 10 yr follow-up interval?: See above
[2024-11-14 10:05] VITALS: BP 102/63; PULSE 62; RESP 18; TEMP 36.3; O2SAT 94
[2024-11-14 10:15] VITALS: BP 102/61; PULSE 58; RESP 18; O2SAT 93
[2024-11-14 10:25] VITALS: BP 120/65; PULSE 63; RESP 16; O2SAT 96
--- NOTE | 2024-11-14 11:06 | P.PNANES_ITS ---
[facility] Disclaimer: The information contained in this section may have been updated after the patient was seen, as this information can be updated by other users. Medical History Abnormal electrocardiography Crescendo angina Family history of heart disease Dyspnea Chest pain Social History Smoking Status: Never smoker alcohol intake: never substance use type: denies use current occupational status: unemployed Travel in the last 8 weeks?: None household members: spouse housing: house current occupation: [employer] current occupational exposures/hazards: No caffeine: Yes Have you lived/traveled outside [place] in past 30 days?: No Contact w/someone who lives/traveled outside [place] past 30 days?: No Exposure to someone with infectious disease in past 14 days?: No Do you have a fever (greater than 100.4 F or 38 C)?: No Have you tested positive for COVID-19?: No Exposed to someone with COVID-19 in past 14 days?: No Do you have a sore throat?: No Do you have a cough?: No Do you have any weakness?: No Do you have any diarrhea?: No Are you experiencing any unusual bleeding?: No Do you have any muscle aches/pain?: No Do you have any abdominal pain?: No Are you experiencing loss of taste or smell?: No [facility] Anesthesia Checklist Patient Identification Patient Identification: Arm Band and Family Structural Data Planned Operative Procedure/s: colonoscopy Consent for Planned Operative Procedure(s) Verified: Yes Verified Documents: Surgical Consent and History and Physical NPO Status Verified Time NPO: 00:00 Additional verifications Patient : No Anesthesia Reactions: No Hx Blood Transfusions: No Blood Transfusion Reaction: No Cephalosporin Allergy: No Previous Colonoscopy: Yes Airway Assessment Mallampati Score:: Class II C-Spine Mobility Assessed: Yes TMJ Mobility Assessed: Yes Dentition: Partials Neurological Assessment Level of Consciousness: Awake, Alert, Appropriate and Follows Commands Hx Seizures: No Numbness or tingling in extremities: No Anesthesia Plan Anesthesia Risk discussed: Yes ASA Class: II Anesthesia Type: MAC Preoperative Comments Pre-Operative Comments: acid reflux
== END 2024-11-14 10:27 | disposition home or self-care (01) ==
PROVIDERS: PCP Internal Medicine; Visit Provider Surgery
PROC: 0DJD8ZZ Inspection of Lower Intestinal Tract, Via Natural or Artificial Opening Endoscopic (ICD-10-PCS; CPT 45378; principal; 2024-11-14 10:15)
DX: Z12.11 Encounter for screening for malignant neoplasm of colon (principal); K64.8 Other hemorrhoids; K57.30 Diverticulosis of large intestine without perforation or abscess without bleeding; Z90.49 Acquired absence of other specified parts of digestive tract; Z56.0 Unemployment, unspecified; Z79.899 Other long term (current) drug therapy; Z79.890 Hormone replacement therapy; Z88.8 Allergy status to other drugs, medicaments and biological substances; Z88.0 Allergy status to penicillin
CPT/HCPCS: 45378; J2003; J2704

== ENCOUNTER 2024-12-02 09:28 | Outpatient (CLI) | payer OTHER, MEDICARE, SELFPAY ==
[2024-12-02 10:47] LABS: Hematocrit 44.8 % (42.0-52.0); Hemoglobin 14.8 g/dL (14.1-18.0); Mean Corpuscular HGB Conc 33.0 g/dL (31.8-35.4); Mean Corpuscular Hemoglobin 27.9 pg (27.0-31.2); Mean Corpuscular Volume 84.5 fl (80-94); Platelet Count 284 K/mm3 (142-424); Red Blood Count 5.30 M/mm3 (4.60-6.20); Red Cell Distribution Width-SD 42.1 fL; White Blood Count 6.3 K/mm3 (4.8-10.8)
[2024-12-02 10:48] LABS: Immature Granulocytes % 0.2 %; Nucleated Red Blood Cells % 0 %
[2024-12-02 10:51] LABS: Microscopic, Urine URINE MICROSCOPIC (MICROSCOPIC)
[2024-12-02 11:47] LABS: Color,Urine Yellow (Yellow); PH,Urine 6.5 (5.0-8.5)
[2024-12-02 11:48] LABS: Bilirubin,Urine Negative (Negative); Glucose,Urine (UA) Negative (Negative); Ketones,Urine Negative (Negative); Leukocyte Esterase,Urine Negative (Negative); Protein,Urine Negative (Negative); Specific Gravity, Urine <= 1.005 (1.005-1.030); Urobilinogen,Urine 0.2 EU/dl (0.2)
[2024-12-02 11:54] LABS: Anion Gap 12.8 mEq/L (5-15); Bilirubin,Total 0.3 mg/dl (0.2-1.3); Blood Urea Nitrogen 17 mg/dl (9-20); Calcium 10.1 mg/dl (8.4-10.2); Carbon Dioxide 28 mmol/L (22.0-30.0); Chloride 103 mmol/L (98-107); Creatinine,Serum 1.10 mg/dl (0.66-1.25); Estimated Glomerular Filt Rate 67 ml/min (>60); GFR (African American) 81 ML/MIN (>60); Glucose 125 mg/dl (74-100); Potassium 4.8 mmoL/L (3.5-5.1); Sodium 139 mmol/L (136-145)
[2024-12-02 11:55] LABS: Alanine Aminotransferase 25 U/L (12-78); Albumin Level 4.7 g/dl (3.5-5.0); Albumin/Globulin Ratio 1.7 (1.1-1.8); Alkaline Phosphatase 94 U/L (38-126); Amylase 48 U/L (30-110); Aspartate Amino Transferase 30 U/L (17-59); Globulin 2.7 g/dL (1.3-3.2); Total Protein,Serum 7.4 g/dl (6.3-8.2)
[2024-12-02 11:56] LABS: Thyroid Stimulating Hormone 3.75 uIU/mL (0.465-4.68)
== END 2024-12-02 23:59 | disposition home or self-care (01) ==
LOC: LAB 09:32
PROVIDERS: PCP Internal Medicine; Visit Provider Internal Medicine
DX: R10.9 Unspecified abdominal pain (principal); E03.9 Hypothyroidism, unspecified
CPT/HCPCS: 36415; 80053; 81001; 82150; 84443; 85025

== ENCOUNTER 2024-12-15 10:04 | Outpatient (CLI) | payer OTHER, MEDICARE, SELFPAY ==
[2024-12-15] MEDS: IOPAMIDOL-370 (76%);100ML BOTTLE 75 ML IV (10:23)
[2024-12-15] MEDS: SODIUM CHLORIDE 0.9% 10ML SYR (RAD ONLY) 10 ML IV (10:23)
--- NOTE | 2024-12-15 10:30 | CT_ITS ---
FINAL REPORT TECHNIQUE: Thin section axial images were obtained through the abdomen after intravenous contrast. Reconstruction images were obtained from the axial data. Exam was performed using dose reduction techniques. CLINICAL HISTORY: Right sided abdominal pain x 3 weeks FINDINGS: There is a 4 mm left lower lobe pulmonary nodule seen on series 2 image 4. Lung bases are otherwise clear. Liver is fatty infiltrated without focal lesion. Gallbladder is absent. The spleen, adrenal glands, and pancreas are unremarkable. There is no hydronephrosis or solid renal mass. Abdominal GI tract is without acute abnormality. There is no abdominal lymphadenopathy or ascites. The pelvic solid organs are unremarkable. Prostate and urinary bladder are normal. The pelvic portions of the GI tract, including the appendix, are without acute abnormality. There is no pelvic lymphadenopathy or ascites. No acute osseous abnormalities identified. IMPRESSION: No CT evidence of acute intra-abdominal or intrapelvic abnormality. 4 mm left lower lobe pulmonary nodule. Recommend follow-up chest CT per Fleischner criteria after risk stratification. Reviewed, Interpreted and Dictated by Keya Porter MD Transcribed by Zoila Delacruz Authenticated and [facility]
== END 2024-12-15 23:59 | disposition home or self-care (01) ==
LOC: RAD 10:04
PROVIDERS: PCP Internal Medicine; Visit Provider Internal Medicine
DX: R10.9 Unspecified abdominal pain (principal); R91.8 Other nonspecific abnormal finding of lung field; K76.0 Fatty (change of) liver, not elsewhere classified
CPT/HCPCS: 74177; Q9967